=== PATIENT | male | born 1935 | race Caucasian/White ===

== ENCOUNTER 2017-05-05 08:35 | Inpatient (IN) ==
[2017-05-05] MEDS ORDERED: SODIUM CHLORIDE 0.9% 500 ML IV STA (09:34)
[2017-05-05 09:44] LABS: Basophils % 0.2 % (0.0-0.8); Hemoglobin 15.4 GM/DL (14.0-18.0); Immature Granulocytes % 0.2 %; Immature Granulocytes Absolute 0.02 #; Lymphocytes # 1.1 10*3/uL (1.4-4.0); Lymphocytes % 12.7 % (21.2-54.2); Mean Corpuscular Hemoglobin 32 PG (27-34); Mean Corpuscular Volume 91.5 FL (87-102); Mean Platelet Volume 11.1 FL (9.6-12.0); Monocytes # 0.8 10*3/uL (0.11-0.8); Monocytes % 9.7 % (1.7-12.7); Neutrophils # 6.4 10*3/uL (1.4-7.4); Neutrophils % 77.2 % (38.7-73.9); Platelet Count 149 T/CUMM (130-400); Red Blood Count 4.81 MC/CUMM (3.8-5.5); Red Cell Distribution Width 13.2 % (9.3-17.3); White Blood Count 8.3 T/CUMM (4-12)
[2017-05-05 09:48] LABS: PT Patient Result 10.3 SECS
[2017-05-05 09:58] LABS: Albumin 3.4 G/DL (3.4-5.0); Bilirubin,Total 0.5 MG/DL (0.2-1.0); Calcium 8.9 MG/DL (8.5-10.1); Osmolality,Calculated 298.8 MOS/KG (273-304); Potassium 3.9 MMOL/L (3.5-5.1); Total Protein 7.6 G/DL (6.4-8.3); Troponin I Only 0.071 NG/ML (0.00-0.045)
[2017-05-05 10:27] LABS: ABG Base Excess -1.7 MMOL/L (-2.5-2.5); ABG HCO3 22.1 MMOL/L (20-26); ABG Oxygen Saturation 97.3 % (95-100); ABG PCO2 34.8 MM HG (35-48); ABG PO2 100.5 MM HG (80-95); ABG TCO2 23.1 MMOL/L (23-27)
[2017-05-05 10:30] LABS: Apearance,Urine Slightly Hazy (Clear); Bacteria,Urine Few /HPF (Few); Bilirubin,Urine Negative (Negative); Blood, Urine Small mg/dL (Negative); Glucose,Urine (UA) Negative (Negative); Ketones,Urine Negative (Negative); Mucus,Urine Occasional /LPF (Occasional); Nitrite,Urine Negative (Negative); Protein,Urine 100 MG/DL; RBC,Urine 3 /HPF (0-4); Urine Color Yellow (Yellow); Urine Urobilinogen < 2.0 EU/DL (0.2-1.0); WBC,Urine 1 /HPF (0-6)
[2017-05-05 10:45] LABS: Giant Platelets Few; Hypochromasia 1+; Lymphocytes 9 % (20-55); Microcytosis Slight; Platelet Estimate Normal; Segmented Neutrophils 83 % (50-85); Total Cells Counted 100
[2017-05-05] MEDS ORDERED: ONDANSETRON 4 MG/2 ML VIAL IV PRN (11:43)
[2017-05-05] MEDS: ENOXAPARIN 40 MG/0.4 ML SYRINGE SUBCUT SCH (14:15)
[2017-05-05] MEDS: SODIUM CHLORIDE 0.45% 1,000 ML IV SCH (14:20)
[2017-05-05] MEDS ORDERED: ACETAMINOPHEN 500 MG TABLET ONE (16:51)
[2017-05-05] MEDS ORDERED: DEXTROSE 50% 25 GM/50 ML VIAL IV PRN (16:53)
[2017-05-05] MEDS ORDERED: GLUCAGON 1 MG VIAL IM PRN (16:53)
[2017-05-05] MEDS ORDERED: ACETAMINOPHEN 500 MG TABLET PO STA (16:56)
[2017-05-05] MEDS: INSULIN LISPRO 100 UNIT/ML SUBCUT SCH (21:22)
[2017-05-05] MEDS: levETIRAcetam 250 MG TABLET PO SCH (21:30)
[2017-05-05] MEDS: METOPROLOL TARTRATE 25 MG TABLET PO SCH (21:30)
[2017-05-05] MEDS: MEMANTINE 10 MG TABLET PO SCH (21:30)
[2017-05-06 00:50] LABS: Basophils % 0.3 % (0.0-0.8); Eosinophils % 0.3 % (0.00-10.9); Hematocrit 39.7 VOL% (42.0-52.0); Hemoglobin 13.2 GM/DL (14.0-18.0); Immature Granulocytes % 0.7 %; Immature Granulocytes Absolute 0.05 #; Lymphocytes # 1.5 10*3/uL (1.4-4.0); Lymphocytes % 21.7 % (21.2-54.2); Mean Corpuscular HGB Conc 33.2 GM/DL (32-36); Mean Corpuscular Hemoglobin 32 PG (27-34); Mean Corpuscular Volume 94.7 FL (87-102); Mean Platelet Volume 11.2 FL (9.6-12.0); Monocytes # 0.7 10*3/uL (0.11-0.8); Neutrophils # 4.5 10*3/uL (1.4-7.4); Platelet Count 135 T/CUMM (130-400); Red Blood Count 4.19 MC/CUMM (3.8-5.5); Red Cell Distribution Width 13.2 % (9.3-17.3); White Blood Count 6.7 T/CUMM (4-12)
[2017-05-06 01:10] LABS: Risk Ratio 3.06
[2017-05-06 01:11] LABS: Albumin 2.9 G/DL (3.4-5.0); Bilirubin,Total 0.6 MG/DL (0.2-1.0); Calcium 8.1 MG/DL (8.5-10.1); Osmolality,Calculated 300.4 MOS/KG (273-304); Potassium 3.8 MMOL/L (3.5-5.1); Total Protein 6.4 G/DL (6.4-8.3)
[2017-05-06] MEDS: SODIUM CHLORIDE 0.45% 1,000 ML IV SCH (01:20)
[2017-05-06] MEDS: LEVOTHYROXINE 100 MCG TABLET PO SCH (06:21)
[2017-05-06] MEDS: levETIRAcetam 250 MG TABLET PO SCH ×2 (09:43→21:44)
[2017-05-06] MEDS: DONEPEZIL 10 MG TABLET PO SCH (09:43)
[2017-05-06] MEDS: FOLIC ACID 1 MG TABLET PO SCH (09:43)
[2017-05-06] MEDS: MEMANTINE 10 MG TABLET PO SCH ×2 (09:43→21:44)
[2017-05-06] MEDS: amLODIPine 10 MG TABLET PO SCH (09:44)
[2017-05-06] MEDS: ENOXAPARIN 40 MG/0.4 ML SYRINGE SUBCUT SCH (09:44)
[2017-05-06] MEDS: METOPROLOL TARTRATE 25 MG TABLET PO SCH ×2 (09:44→21:44)
[2017-05-06] MEDS: ASPIRIN EC 81 MG TABLET PO SCH (09:46)
[2017-05-06] MEDS: INSULIN LISPRO 100 UNIT/ML SUBCUT SCH ×4 (09:47→21:45)
[2017-05-06] MEDS: ATORVASTATIN 10 MG TABLET PO SCH (10:14)
[2017-05-06] MEDS: DEXTROSE 5% 1,000 ML IV SCH ×2 (10:23→22:52)
[2017-05-07] MEDS ORDERED: ZINC OXIDE PASTE 113 GM TUBE TOP PRN (02:16)
[2017-05-07] MEDS: LEVOTHYROXINE 100 MCG TABLET PO SCH (06:15)
[2017-05-07] MEDS: INSULIN LISPRO 100 UNIT/ML SUBCUT SCH ×3 (08:49→16:36)
[2017-05-07] MEDS: levETIRAcetam 250 MG TABLET PO SCH ×2 (08:53→21:13)
[2017-05-07] MEDS: ASPIRIN EC 81 MG TABLET PO SCH (08:53)
[2017-05-07] MEDS: DONEPEZIL 10 MG TABLET PO SCH (08:53)
[2017-05-07] MEDS: FOLIC ACID 1 MG TABLET PO SCH (08:53)
[2017-05-07] MEDS: amLODIPine 10 MG TABLET PO SCH (08:53)
[2017-05-07] MEDS: MEMANTINE 10 MG TABLET PO SCH ×2 (08:53→21:12)
[2017-05-07] MEDS: ENOXAPARIN 40 MG/0.4 ML SYRINGE SUBCUT SCH (08:53)
[2017-05-07] MEDS: METOPROLOL TARTRATE 25 MG TABLET PO SCH ×2 (08:53→21:12)
[2017-05-07] MEDS: ATORVASTATIN 10 MG TABLET PO SCH (08:53)
[2017-05-07] MEDS: DEXTROSE 5% 1,000 ML IV SCH (08:54)
[2017-05-07 09:02] LABS: Calcium 7.3 MG/DL (8.5-10.1); Osmolality,Calculated 284.8 MOS/KG (273-304); Potassium 3.2 MMOL/L (3.5-5.1)
[2017-05-07] MEDS ORDERED: POTASSIUM CHLORIDE 20 MEQ TABLET PO ONE (10:00)
[2017-05-07] MEDS ORDERED: TUBERCULIN SKIN TEST 0.1 ML SYRINGE INTRADERM ONE (11:00)
[2017-05-08] MEDS: INSULIN LISPRO 100 UNIT/ML SUBCUT SCH ×2 (04:30→08:38)
[2017-05-08 06:44] LABS: Calcium 7.7 MG/DL (8.5-10.1); Osmolality,Calculated 286.1 MOS/KG (273-304); Potassium 3.9 MMOL/L (3.5-5.1)
[2017-05-08] MEDS: LEVOTHYROXINE 100 MCG TABLET PO SCH (07:15)
[2017-05-08 07:45] VITALS: BP 161/79
[2017-05-08] MEDS: ATORVASTATIN 10 MG TABLET PO SCH (08:42)
[2017-05-08] MEDS: METOPROLOL TARTRATE 25 MG TABLET PO SCH (08:42)
[2017-05-08] MEDS: DONEPEZIL 10 MG TABLET PO SCH (08:42)
[2017-05-08] MEDS: levETIRAcetam 250 MG TABLET PO SCH (08:42)
[2017-05-08] MEDS: amLODIPine 10 MG TABLET PO SCH (08:42)
[2017-05-08] MEDS: ASPIRIN EC 81 MG TABLET PO SCH (08:42)
[2017-05-08] MEDS: MEMANTINE 10 MG TABLET PO SCH (08:42)
[2017-05-08] MEDS: FOLIC ACID 1 MG TABLET PO SCH (08:43)
[2017-05-08] MEDS: ENOXAPARIN 40 MG/0.4 ML SYRINGE SUBCUT SCH (08:43)
== END 2017-05-08 10:25 | DRG 57 ==
LOC: EDUNIT# → EDBD → N.ED 08:35 → N.EDINP 11:29 → N.2E 17:25
PROVIDERS: ADMIT Internal Medicine; ATTEND Internal Medicine